=== PATIENT | male | born 1995 | race Caucasian/White ===

== ENCOUNTER 2022-08-26 20:10 | Emergency (ER) | payer BC, OTHER ==
[~2022-08-26] VITALS: Ht 172.7 cm; Wt 72.6 kg
--- NOTE | 2022-08-26 20:48 | NUR ---
BIBGF FROM HOME C/O POSSIBLE CONCUSSION TREE FELL ON PT 5PM. -H/A, -LOC ABRASIONS TO R KNEE & BACK. TDAP UNKNOWN, - BLOOD THINNERS. 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 PT A/OX4. TOLERATING R/A WELL WITH NO RESP DISTRESS. SAFETY MEASURES IN PLACE.
--- NOTE | 2022-08-26 21:04 | NUR ---
TAKEN TO CT
--- NOTE | 2022-08-26 21:08 | NUR ---
EMT AT PT'S BEDSIDE FOR WOUNDCARE
--- NOTE | 2022-08-26 21:16 | NUR ---
PT RETURNED FROM CT IN STABLE CONDITION.
[2022-08-26 23:10] VITALS: BP 124/62
== END 2022-08-26 23:10 | disposition home or self-care (01) ==
LOC: ER 20:15
DX: S09.90XA Unspecified injury of head, initial encounter (principal); S80.212A Abrasion, left knee, initial encounter; S80.211A Abrasion, right knee, initial encounter; Z60.2 Problems related to living alone; W20.8XXA Other cause of strike by thrown, projected or falling object, initial encounter; Y93.89 Activity, other specified; Y92.89 Other specified places as the place of occurrence of the external cause; Y99.8 Other external cause status
CPT/HCPCS: 70450-TC; 72125-TC; 73030-TC